=== PATIENT | male | born 1990 | race Caucasian/White ===

== ENCOUNTER 2017-11-05 11:13 | Emergency (ER) | payer OTHER ==
[2017-11-05 11:19] VITALS: BP 139/94
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
[2017-11-05] MEDS ORDERED: OXYCODONE-ACETAMINOPHEN 5-325 MG TABLET PO ONE (13:19)
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
== END 2017-11-05 14:24 | disposition home or self-care (01) ==
LOC: ER 11:13
PROC: 2W3DX1Z Immobilization of Left Lower Arm using Splint (ICD-10-PCS; principal; 2017-11-05)
DX: S62.323A Displaced fracture of shaft of third metacarpal bone, left hand, initial encounter for closed fracture (principal); V43.52XA Car driver injured in collision with other type car in traffic accident, initial encounter
CPT/HCPCS: 99284